=== PATIENT | female | born 1980 | race Two or more races ===

== ENCOUNTER 2020-06-16 14:08 | Emergency (ER) | payer BC, OTHER ==
[~2020-06-16] VITALS: Ht 162.6 cm; Wt 80.7 kg
[2020-06-16 15:05] VITALS: BP 141/78
[2020-06-16] MEDS ORDERED: KETOROLAC TROMETH 60MG/2ML VIAL IM ONE (15:15)
[2020-06-16] MEDS ORDERED: METHOCARBAMOL 500 MG TAB PO ONE (15:15)
== END 2020-06-16 15:59 | disposition home or self-care (01) ==
LOC: ER 14:08
DX: M54.16 Radiculopathy, lumbar region (principal)
CPT/HCPCS: 96372; 99283; J1885